=== PATIENT | male | born 1955 | race Caucasian/White ===

== ENCOUNTER 2019-12-21 13:46 | Emergency (ER) | payer BC, OTHER ==
[2019-12-21] MEDS ORDERED: traMADol 50 MG Tab PO ONE (14:17)
--- NOTE | 2019-12-21 14:22 | EDM.PDOC ---
ED HPI GENERAL MEDICAL PROBLEM - General Chief Complaint: Abdominal Pain Stated Complaint: ABDOMINAL PAIN Time Seen by Provider: 12/21/19 14:17 Source of Information: Reports: Patient History Limitations: Reports: No Limitations - History of Present Illness INITIAL COMMENTS - FREE TEXT/NARRATIVE: 64-year-old male presents to the ED with diffuse abdominal pain with mild nausea. He has had some loose diarrhea stools that are yellow in color and no blood. He has been diaphoretic. Of note the patient has been taking tramadol 100 mg 2-3 times daily for severe hip and low back pain for many months and ran out 3 days ago. He believes that he is going through withdrawal which I concur with. He does not drink alcohol. He has had abdominal surgery i.e. ventral hernia with mesh grafting in the past supraumbilically. Reports he is been trying to get off the tramadol and replace it with Aleve and Tylenol out of fears of getting addicted to the tramadol before he can get his left hip repaired. He was due to have repaired back in October but due to the COVID 19 illness his surgery has been canceled. Onset: Gradual Onset Date: 12/19/19 Duration: Day(s):, Getting Worse Location: Reports: Abdomen, Generalized (Associated weakness mild dizziness diaphoresis intermittent nausea diarrhea all signs and symptoms of withdrawal from opioid.) Quality: Reports: Other Severity: Moderate (As above) Improves with: Reports: None Worsens with: Reports: None Context: Reports: Other (Opioid withdrawal symptoms). Denies: Activity, Exercise, Lifting, Sick Contact, Trauma Associated Symptoms: Reports: Diaphoresis (Nausea without vomiting and hot flashes and sweats.), Nausea/Vomiting, Weakness, Other (Loose diarrheal stools) . Denies: No Other Symptoms, Confusion, Chest Pain, Cough, cough w sputum, Fever/Chills, Headaches, Malaise, Rash, Seizure, Shortness of Breath, Syncope Treatments DEBURRER STRIP: Reports: Acetaminophen, NSAIDS (The.) Abdomen Pain Score (Numeric/FACES): 4 - Related Data Allergies Allergy/AdvReac Type Severity Reaction Status Date / Time hydrocodone Allergy Severe Cannot Verified 12/21/19 14:01 Remember Home Meds: Home Meds traMADol HCl [Tramadol HCl] 100 mg PO TID PRN #90 tablet 12/21/19 [Rx] Past Medical History Cardiovascular History: Reports: Hypertension - Past Surgical History HEENT Surgical History: Reports: Oral Surgery, Tonsillectomy GI Surgical History: Reports: Hernia Repair/Other Musculoskeletal Surgical History: Reports: Arthroscopic Knee, Hip Replacement Social & Family History - Tobacco Use Smoking Status *Q: Never Smoker Second Hand Smoke Exposure: No - Caffeine Use Caffeine Use: Reports: None - Recreational Drug Use Recreational Drug Use: No - Living Situation & Occupation Living situation: Reports: Occupation: Employed ED ROS GENERAL - Review of Systems Review Of Systems: See Below Constitutional: Reports: Chills, Malaise, Weakness. Denies: Fever, Fatigue, Weight Loss HEENT: Reports: No Symptoms Respiratory: Reports: No Symptoms Cardiovascular: Reports: No Symptoms Endocrine: Reports: No Symptoms GI/Abdominal: Reports: Abdominal Pain (Remittent abdominal cramping pain), Diarrhea, Nausea. Denies: Decreased Appetite (Stools are on the looser side yellow in color with no blood), Hematemesis, Hematochezia, Vomiting ( Intermittent nausea vomiting) : Reports: Frequency (Severe urinary frequency.) Musculoskeletal: Reports: Back Pain (Neck low back pain), Other (Findings severe pain in his left hip. Right hip has been previously replaced) Skin: Reports: Diaphoresis Neurological: Reports: Dizziness, Difficulty Walking (Likely due to), Weakness. Denies: Confusion, Headache, Numbness, Paresthesia, Pre-Existing Deficit, Syncope, Tingling, Tremors, Trouble Speaking ( left hip pain), Change in Speech Psychiatric: Reports: No Symptoms Hematologic/Lymphatic: Reports: No Symptoms Immunologic: Reports: No Symptoms ED EXAM, GI/ABD - Physical Exam Exam: See Below Exam Limited By: No Limitations General Appearance: Alert, WD/WN, No Apparent Distress, Other (Temperature is 36.8 pulse 75 and sinus respiratory is 18 BP elevated 183 100. Patient is on antihypertensive medications. Pulse ox 98%) Eyes: Bilateral: Normal Appearance (No scleral icterus no blepharal pallor.) Throat/Mouth: Normal Inspection, Normal Lips, Normal Teeth, Normal Oropharynx Head: Atraumatic, Normocephalic Neck: Normal Inspection, Supple, Non-Tender, Full Range of Motion. No: Lymphadenopathy (L), Lymphadenopathy (R) Respiratory/Chest: No Respiratory Distress, Lungs Clear, Normal Breath Sounds, No Accessory Muscle Use, Chest Non-Tender Cardiovascular: Normal Peripheral Pulses, Regular Rate, Rhythm, No Edema, No Gallop, No Murmur, No Rub GI/Abdominal Exam: Soft, Non-Tender ( The supraumbilical midline incision and apparently had a ventral hernia repair with mesh graft placement.), No Organomegaly, No Abnormal Bruit, No Mass, Pelvis Stable, Abnormal Bowel Sounds, Other (All sounds are quite active in all 4 quadrants.) (Male) Exam: No Hernia Back Exam: Decreased Range of Motion, Paraspinal Tenderness (Along the lumbar spine bilaterally.) Extremities: Normal Inspection, Other (Limited internal and external rotation of the left hip.). No: Normal Range of Motion Neurological: Alert, Oriented, CN II-XII Intact, Normal Cognition. No: Normal Gait (Limping gait) Psychiatric: Normal Affect, Normal Mood Skin Exam: Warm, Dry, Intact, Normal Color, No Rash Course - Vital Signs Last Recorded V/S: Last Vital Signs Temp 36.8 C 12/21/19 14:03 Pulse 75 12/21/19 14:03 Resp 18 12/21/19 14:03 BP 183/100 H 12/21/19 14:03 Pulse Ox 98 12/21/19 14:03 - Orders/Labs/Meds Orders: Active Orders 24 hr Category Date Time Status Abdomen 1V Flat [CR] Stat Exams 12/21/19 14:17 Taken CBC WITH AUTO DIFF [HEME] Stat Lab 12/21/19 14:00 Results COMPREHENSIVE METABOLIC PN,CMP [CHEM] Stat Lab 12/21/19 14:00 Received CRP [C-REACTIVE PROTEIN] [CHEM] Stat Lab 12/21/19 14:00 Received LIPASE [CHEM] Stat Lab 12/21/19 14:00 Received MAGNESIUM [CHEM] Stat Lab 12/21/19 14:00 Received Labs: Laboratory Tests 12/21/19 Range/Units 14:00 WBC 10.26 H (4.23-9.07) K/mm3 RBC 5.90 (4.63-6.08) M/mm3 Hgb 17.5 (13.7-17.5) gm/dl Hct 51.1 H (40.1-51.0) % MCV 86.6 (79.0-92.2) fl MCH 29.7 (25.7-32.2) pg MCHC 34.2 (32.2-35.5) g/dl RDW Std Deviation 42.5 (35.1-43.9) fL Plt Count 251 D (163-337) K/mm3 MPV 10.3 (9.4-12.3) fl Neut % (Auto) 78.5 H (34.0-67.9) % Lymph % (Auto) 13.6 L (21.8-53.1) % Clay % (Auto) 6.5 (5.3-12.2) % Eos % (Auto) 0.9 (0.8-7.0) Baso % (Auto) 0.3 (0.1-1.2) % Neut # (Auto) 8.05 H (1.78-5.38) K/mm3 Lymph # (Auto) 1.40 (1.32-3.57) K/mm3 Clay # (Auto) 0.67 (0.30-0.82) K/mm3 Eos # (Auto) 0.09 (0.04-0.54) K/mm3 Baso # (Auto) 0.03 (0.01-0.08) K/mm3 Meds: Medications Discontinued Medications Generic Name Dose Route Start Last Admin Trade Name Freq PRN Reason Stop Dose Admin Tramadol HCl 100 mg 12/21/19 14:17 12/21/19 14:21 Ultram PO 12/21/19 14:18 100 mg ONETIME ONE Administration - Radiology Interpretation Free Text/Narrative:: 4-year-old male presents to the ED with signs and symptoms of opioid withdrawal from being on tramadol 100 mg 2-3 times daily for many months due to chronic pain in his lower back and left hip. He was a scheduled for left hip surgery 2 months ago but it was canceled because of the Cobin virus. He ran out of medication about 3 and half days ago. Since then he has developed symptoms such as nausea diaphoresis hot flushes abdominal cramping pain and loose yellow stools. Feels unwell. Been using Tylenol and Aleve for pain but is developing epigastric pain from NSAID use. Is also got significant hypertension. Is being aggravated by the NSAID. Plan tramadol 100 mg given by mouth. Routine labs and a KUB will be obtained to make sure nothing else is awry. - Re-Assessments/Exams Free Text/Narrative Re-Assessment/Exam: 12/21/19 14:46 White count is 10.26 with 78.5% neutrophils on the auto differential. Hemoglobin is elevated at 17.5 with hematocrit of 51.1 suggesting moderate hemoconcentration. CV is normal at 86.6. Odium 143 with a potassium of 3.7 chloride 104 with a bicarb 29. Anion gap is 13.7. BUN is 11 with a creatinine of 0.8. GFR remains greater than 60. Glucose is slightly elevated at 148. Calcium is 9.1 magnesium is 1.8. Liver function is normal. C -reactive protein is 0.5. Lipase is normal at 68. Pressure is running high with his diastolics almost all above 90 and as high as 112. Systolics are running anywhere anywhere from 1 68-1 3 to 4 weeks. He states he used to take lisinopril 5 mg daily but it appears that he probably has a significant hypertension problem and needs medication for this. The problem of course he is going through withdrawal and is having significant pain in his left hip. He will be discharged home on tramadol 100 mg twice daily with a 3 times daily dose as needed for bad days. 77. He is on a large amount of Aleve at this time and therefore I have advised him to discontinue this medication and have his blood pressure checked frequently over the next 3 to 4 weeks. Will be discharged home on tramadol Departure - Departure Time of Disposition: 14:56 Disposition: Home, Self-Care 01 Condition: Fair Clinical Impression: Acute opioid withdrawal - Discharge Information *PRESCRIPTION DRUG MONITORING PROGRAM REVIEWED*: Not Applicable *COPY OF PRESCRIPTION DRUG MONITORING REPORT IN PATIENT NUZHAT: Not Applicable Prescriptions: traMADol HCl [Tramadol HCl] 100 mg PO TID PRN #90 tablet PRN Reason: osteoarthritis Lt hip Referrals: PCP,None [Primary Care Provider] - Forms: ED Department Discharge Additional Instructions: Valuation in the emergency room today in regards to feeling fairly ill after missing out on tramadol tablets over the last 3 days. You are suffering mild opioid withdrawal symptoms with intermittent sweats nausea abdominal discomfort loose stools and a general sense of feeling ill. Lab test proved to be completely normal. X-ray of the abdomen was also completely normal. You are given a dose of tramadol for 100 mg in the ED to help start to relieve symptoms over the next 2 to 3 hours. Prescription written for tramadol 100 mg 3 times daily as needed or as needed for left hip pain until surgery can be performed. Follow-up with personal care physician as planned. Your blood pressure was notably elevated in the ED possibly for variety of reasons. First of all opioid withdrawal symptoms. Pain elevating blood pressure and Aleve that you are taking will elevate blood pressure. Suggest watching her blood pressure having it checked regularly over the next 3 to 4 weeks and if the top number remains greater than 140 and the bottom number remains greater than 85/90 you need to follow-up with a physician to have blood pressure medication introduced. Sepsis Event Note - Evaluation Sepsis Screening Result: No Definite Risk - Focused Exam Vital Signs: Vital Signs Temp Pulse Resp BP Pulse Ox 12/21/19 14:03 36.8 C 75 18 183/100 H 98 Date Exam was Performed: 12/21/19 Time Exam was Performed: 14:40 - My Orders Last 24 Hours: My Active Orders 12/21/19 14:00 CBC WITH AUTO DIFF [HEME] Stat COMPREHENSIVE METABOLIC PN,CMP [CHEM] Stat CRP [C-REACTIVE PROTEIN] [CHEM] Stat LIPASE [CHEM] Stat MAGNESIUM [CHEM] Stat 12/21/19 14:17 Abdomen 1V Flat [CR] Stat - Assessment/Plan Last 24 Hours: My Active Orders 12/21/19 14:00 CBC WITH AUTO DIFF [HEME] Stat COMPREHENSIVE METABOLIC PN,CMP [CHEM] Stat CRP [C-REACTIVE PROTEIN] [CHEM] Stat LIPASE [CHEM] Stat MAGNESIUM [CHEM] Stat 12/21/19 14:17 Abdomen 1V Flat [CR] Stat
--- NOTE | 2019-12-22 13:33 | CR ---
Abdomen: Supine view of the abdomen was obtained. Comparison: No prior abdominal x-ray, previous right upper quadrant abdominal ultrasound of 05/03/16 is available. Bowel gas pattern appears normal. Scoliosis and degenerative change is noted within the spine. Right hip prosthesis is noted. Severe joint space narrowing is noted within the left hip with large degenerative cyst within the superior acetabulum of the left hip is also noted. No abnormal calcifications are definitely seen. Impression: 1. Incidental findings as noted above. 2. Nothing acute is seen. Diagnostic code #2 This report was dictated in MDT
== END 2019-12-21 15:24 | disposition home or self-care (01) ==
LOC: JD.ED 13:46
DX: F11.23 Opioid dependence with withdrawal (principal); I10 Essential (primary) hypertension; Z88.8 Allergy status to other drugs, medicaments and biological substances
CPT/HCPCS: 36415; 74018; 80053; 83690; 83735; 85025; 86140; 99284; A9270; 99283

== ENCOUNTER 2020-08-31 08:05 | Day surgery (SDC) | payer OTHER ==
[~2020-08-31 08:05] MED LIST: Acetaminophen 325 MG Tab PO SCH; Lactated Ringers 1,000 ML IV SCH; Lidocaine 1% 4 ML ONE; Lidocaine 1%/Sod Bicarbonate in NS 8.4% 1 ML Syringe IDERM PRN; Midazolam 1 MG/ML 2 ML SDV ONE; Ondansetron 4 MG/2 ML SDV ONE; Pregabalin 25 MG Cap PO SCH; Propofol 200 MG/20 ML SDV ONE; Sodium Chloride 0.9% 10 ML Syringe FLUSH PRN; oxyCODONE ER 10 MG TAB.ER PO SCH
[2020-08-31] MEDS ORDERED: diphenhydrAMINE 50 MG/ML SDV IVPUSH PRN (08:28)
[2020-08-31] MEDS ORDERED: Ondansetron 4 MG/2 ML SDV IVPUSH PRN (08:28)
--- NOTE | 2020-08-31 08:34 | PCM.PREANE ---
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 ) - Physical Assessment NPO Status Date: 08/30/20 NPO Status Time: 07:00 Vital Signs: Last Vital Signs Temp 36.5 C 08/31/20 08:05 Pulse 78 08/31/20 08:05 Resp 14 08/31/20 08:05 BP 133/86 08/31/20 08:05 Pulse Ox 97 08/31/20 08:05 Height: 1.7 m Weight: 120.656 kg ASA Class: 3 Mental Status: Alert & Oriented x3 Airway Class: Mallampati = 2 Dentition: Reports: Missing Tooth/Teeth (missinge one tooth 2nd to back right ) Thyro-Mental Finger Breadths: 3 Mouth Opening Finger Breadths: 4 ROM/Head Extension: Full Lungs: Clear to Auscultation, Normal Respiratory Effort Cardiovascular: Regular Rate, Regular Rhythm - Lab Values: Laboratory Last Values MRSA (PCR) Negative 08/19/20 11:38 - Allergies Allergies/Adverse Reactions: Allergies Allergy/AdvReac Type Severity Reaction Status Date / Time No Known Allergies Allergy Verified 08/31/20 08:22 - Blood Blood Available: No - Anesthesia Plan Pre-Op Medication Ordered: None - Acknowledgements Anesthesia Type Planned: Spinal Pt an Appropriate Candidate for the Planned Anesthesia: Yes Alternatives and Risks of Anesthesia Discussed w Pt/Guardian: Yes Pt/Guardian Understands and Agrees with Anesthesia Plan: Yes PreAnesthesia Questionnaire Cardiovascular History: Reports: Hypertension - Past Surgical History HEENT Surgical History: Reports: Oral Surgery, Tonsillectomy GI Surgical History: Reports: Hernia Repair/Other Musculoskeletal Surgical History: Reports: Arthroscopic Knee, Hip Replacement - HOME MEDS Home Medications: Home Meds Apixaban [Eliquis] 2.5 mg PO BID #70 tablet 08/29/20 [Rx] Cyclobenzaprine [Flexeril] 10 mg PO BID PRN #20 tab 08/29/20 [Rx] oxyCODONE 5 - 10 mg PO Q4H PRN #40 tab 08/29/20 [Rx] - CURRENT (IN HOUSE) MEDS Current Meds: Current Medications Acetaminophen (Tylenol) 975 mg PO ONETIME LIN Stop: 08/31/20 13:00 Last Admin: 08/31/20 08:15 Dose: 975 mg Documented by: Morphine Sulfate 8 mg/Epinephrine HCl 0.3 mg/Cefuroxime Sodium 750 mg/Ketorolac Tromethamine 30 mg/Sodium Chloride 7.9 ml 0 mg .XX ASDIRECTED PRN PRN Reason: Pain Stop: 08/31/20 18:00 Lactated Ringer's (Ringers, Lactated) 1,000 mls @ 125 mls/hr IV ASDIRECTED LIN Stop: 08/31/20 23:00 Lidocaine/Sodium Bicarbonate (Buffered Lidocaine 1% In Ns 8.4%) 0.25 ml IDERM ONETIME PRN PRN Reason: Prior to IV Start Stop: 08/31/20 23:00 Oxycodone HCl (Oxycontin) 10 mg PO ONETIME LIN Stop: 08/31/20 13:00 Last Admin: 08/31/20 08:14 Dose: 10 mg Documented by: Pregabalin (Lyrica) 50 mg PO ONETIME LIN Stop: 08/31/20 13:00 Last Admin: 08/31/20 08:15 Dose: 50 mg Documented by: Sodium Chloride (Saline Flush) 10 ml FLUSH ASDIRECTED PRN PRN Reason: Keep Vein Open Stop: 08/31/20 18:00 Discontinued Medications Bupivacaine HCl (Sensorcaine-Mpf 0.25%) Confirm Administered Dose 30 ml .ROUTE .STK-MED ONE Stop: 08/31/20 08:15 Lactated Ringer's (Ringers, Lactated) 1,000 mls @ 125 mls/hr IV ASDIRECTED LIN Stop: 02/10/20 23:00 Lidocaine HCl (Xylocaine-Mpf 1%) Confirm Administered Dose 4 mls @ as directed .ROUTE .STK-MED ONE Stop: 08/31/20 07:41 Lidocaine/Sodium Bicarbonate (Buffered Lidocaine 1% In Ns 8.4%) 0.25 ml IDERM ONETIME PRN PRN Reason: Prior to IV Start Stop: 02/10/20 18:00 Midazolam HCl (Versed 1 Mg/Ml) Confirm Administered Dose 2 mg .ROUTE .STK-MED ONE Stop: 08/31/20 07:41 Ondansetron HCl (Zofran) Confirm Administered Dose 4 mg .ROUTE .STK-MED ONE Stop: 08/31/20 07:44 Propofol (Diprivan 20 Ml) Confirm Administered Dose 400 mg .ROUTE .STK-MED ONE Stop: 08/31/20 07:40 Sodium Chloride (Saline Flush) 10 ml FLUSH ASDIRECTED PRN PRN Reason: Keep Vein Open Stop: 02/10/20 18:00 Tranexamic Acid (Cyklokapron) Confirm Administered Dose 1,000 mg .ROUTE .STK-MED ONE Stop: 08/31/20 08:15 Vancomycin HCl (Vancomycin) Confirm Administered Dose 1 gm .ROUTE .STK-MED ONE Stop: 08/31/20 08:15
[2020-08-31] MEDS ORDERED: ceFAZolin 1 GM Vial ONE (10:18)
[2020-08-31] MEDS ORDERED: Sodium Chloride 0.9% 250 ML ONE (10:24)
[2020-08-31] MEDS ORDERED: Phenylephrine 1% 10 MG/ML SDV ONE (10:25)
[2020-08-31] MEDS ORDERED: ePHEDrine 50 MG/ML SDV ONE ×2 (10:27→11:37)
[2020-08-31] MEDS: Bupivacaine 0.25% 10 ML SDV ONE ×2 (11:06→11:12)
[2020-08-31] MEDS: Morphine 8 MG, EPINEPHrine 0.3 MG, Cefuroxime 750 MG, Ketorolac 30 MG, Sodium Chloride ... PRN ×10 (11:06→11:18)
[2020-08-31] MEDS: Vancomycin 1 GM SDV ONE ×2 (11:07→11:16)
[2020-08-31] MEDS ORDERED: Ketamine 500 mg/10 ML MDV ONE (11:13)
[2020-08-31] MEDS ORDERED: Propofol 200 MG/20 ML SDV ONE (11:26)
[2020-08-31] MEDS ORDERED: Lactated Ringers 1,000 ML ONE ×2 (11:31)
--- NOTE | 2020-08-31 12:15 | PCM.POSTAN ---
POST ANESTHESIA ASSESSMENT - MENTAL STATUS Mental Status: Alert - VITAL SIGNS Vital Signs: 1154 105/61 98 2 L 69 17 96.9 Last Vital Signs Temp 36.5 C 08/31/20 08:05 Pulse 78 08/31/20 08:05 Resp 14 08/31/20 08:05 BP 133/86 08/31/20 08:05 Pulse Ox 97 08/31/20 08:05 - RESPIRATORY Respiratory Status: Respiratory Rate WNL, Airway Patent, O2 Saturation Stable, Supplemental Oxygen - CARDIOVASCULAR CV Status: Pulse Rate WNL, Blood Pressure Stable - GASTROINTESTINAL GI Status: No Symptoms - PAIN Pain Score: 0 - POST OP HYDRATION Hydration Status: Adequate & Stable - OBSERVATIONS Free Text/Narrative:: pt awake and orientated in recovery room. when asked if he remembers events of case and he states yes he remembers having pressure under his right chest that was coming from the axillary roll. he remembers when it was removed and it relieved this pressure causing pain. he remembers sounds during case but not placing the 2nd IV . PT normaltensive
[2020-08-31] MEDS: fentaNYL 100 MCG/2 ML SDV IVPUSH PRN ×3 (12:26→13:36)
[2020-08-31] MEDS: HYDROmorphone 0.5 MG/0.5 ML Syringe IVPUSH ONE ×2 (13:04→13:17)
[2020-08-31] MEDS ORDERED: HYDROmorphone 0.5 MG/0.5 ML Syringe ONE (13:04)
--- NOTE | 2020-08-31 13:22 | CR ---
Pelvis and left hip: AP view of the pelvis was obtained as well as crosstable lateral view of the left hip. Comparison: Prior AP pelvis study of 01/21/2012. Recently placed left hip prosthesis is noted. Components are aligned. Soft tissue air is noted from the surgical procedure. Stable right hip prosthesis is noted. Above the right hip prosthesis there is a bony exostosis which is an interval change but likely incidental. Disc space narrowing is seen within the visualized spine. No acute bony abnormality is appreciated. Impression: 1. Recently placed left hip prosthesis. 2. Other findings as noted above. Diagnostic code #2
[2020-08-31] MEDS ORDERED: oxyCODONE 5 MG Tab PO PRN (13:29)
[2020-08-31] MEDS ORDERED: Ketorolac 30 MG/ML SDV IVPUSH ONE (13:37)
[2020-08-31] MEDS ORDERED: Cyclobenzaprine 10 MG Tab PO ONE (14:00)
--- NOTE | 2020-08-31 15:35 | PCM48HPAN ---
Post Anesthesia Note - EVALUATION WITHIN 48HRS OF ANESTHETIC Vital Signs in Normal Range: Yes Patient Participated in Evaluation: Yes Respiratory Function Stable: Yes Airway Patent: Yes Cardiovascular Function Stable: Yes Hydration Status Stable: Yes Pain Control Satisfactory: Yes Nausea and Vomiting Control Satisfactory: Yes Mental Status Recovered: Yes Vital Signs: Last Vital Signs Temp 99.1 F 08/31/20 13:25 Pulse 66 08/31/20 14:50 Resp 16 08/31/20 14:50 BP 99/58 L 08/31/20 14:50 Pulse Ox 96 08/31/20 14:55 - COMMENTS/OBSERVATIONS Free Text/Narrative:: up with PT. Feels less pain than last time. Denies nausea
--- NOTE | 2020-09-07 16:56 | PCM.OPNOTE ---
- General Post-Op/Procedure Note Date of Surgery/Procedure: 08/31/20 Operative Procedure(s): left total hip arthroplasty Pre Op Diagnosis: left hip osteoarthrosis Post-Op Diagnosis: Same Anesthesia Technique: Local, MAC, Spinal Primary Surgeon: Dhaval Miles Anesthesia Provider: Jackeline Saldana Whipped Topping Finisher: Katrina Tobin Whipped Topping Finisher: Petra Patterson EBL in mLs: 250 Complications: None Condition: Good Free Text/Narrative:: 60 cup 7 stem 28+0 MDM
--- NOTE | 2020-09-13 18:17 | OR ---
DATE OF OPERATION: 08/31/2020 SURGEON: Dhaval Miles MD OPERATION PERFORMED: Left total hip arthroplasty. PREOPERATIVE DIAGNOSIS: Left hip osteoarthrosis. POSTOPERATIVE DIAGNOSIS: Left hip osteoarthrosis. ANESTHESIA: Local MAC with spinal. ANESTHESIA PROVIDER: Jackeline Saldana. ASSISTANTS: Katrina Tobin PA-C and Petra Patterson LPN. ESTIMATED BLOOD LOSS: 250 mL. COMPLICATIONS: None. CONDITION: Stable. IMPLANTS: 1. Weston size 60 solid Tritanium II acetabular cup. 2. Weston size 7 Accolade II stem. 3. Weston size 28 +0 MDM components. DESCRIPTION OF PROCEDURE: The patient was identified in the preoperative holding area. Proper site was marked and identified by the surgeon. The patient taken back to the operating theater, where after adequate anesthesia, the patient was placed in the right lateral decubitus position. Axillary roll was placed. The patient's gluteal fold was parallel to the floor. Pegs were then placed and well padded. The patient's bony prominences were well padded. Left hip was then sterilely prepped and draped in the usual sterile fashion. OR time-out was performed. The patient received 2 g IV Ancef. Standard posterior incision was made centered over the greater trochanter. This was taken down to the IT band and gluteal fascia, which was incised along the incisional length. Charnley retractor was then placed. Short external rotators were identified, and takedown of the short external rotators as well as the capsule was done from the level of the piriformis down to the lesser trochanter. Hip was then dislocated. Neck cut was completed and found to be adequate. Attention was turned to the acetabulum. Anterior and posterior acetabular retractors were then placed. Circumferential removal of any remaining labrum was done at this time as well as the pulvinar. Starting with a 54 reamer, I was able to ream up to a 60, which was found to have good purchase and a good bony bleeding bed. A 60 mm Tritanium II acetabular solid cup was impacted into place and the MDM liner was impacted into place. Attention was turned to the femur. Box chisel was used out laterally. Starter awl was placed down the canal. Starting with the 0 broach, I was able to broach up to a size 7 which was found to be rotationally and vertically stable. Trial implants were then placed with +0 and was found to have adequate buddhist of leg lengths and was stable throughout range of motion. Bone hook was used to dislocate the trial implants. Trial implants were removed. The size 7 Accolade II stem was impacted into place and the 28+ 0 MDM components were constructed on the back table and impacted on to the stem. The hip was then relocated. A #5 Ethibond suture was used for closure of the short external rotators and capsule. 1 L of Irrisept irrigation was irrigated through the hip along with 1 L pulse lavage irrigation with Ancef. Topical tranexamic acid and vancomycin powder were applied. Periarticular injection was completed. A #2 barbed suture was used for closure of the IT band and gluteal fascia, 2-0 Vicryl was used subcutaneously, and Prineo was used for closure of the skin. The patient had a sterile soft dressing applied and sent to the PACU in stable condition. MMODAL /[id number]
== END 2020-08-31 16:18 | disposition home or self-care (01) ==
LOC: JD.SDS 08:05 → EDSTATUS 13:45 → JD.SDS 16:18
PROVIDERS: ATTEND Orthopaedic Surgery
DX: M16.12 Unilateral primary osteoarthritis, left hip (principal); I10 Essential (primary) hypertension; E66.9 Obesity, unspecified; F17.210 Nicotine dependence, cigarettes, uncomplicated; D68.51 Activated protein C resistance; Z68.41 Body mass index [BMI] 40.0-44.9, adult; Z79.899 Other long term (current) drug therapy; Z98.890 Other specified postprocedural states
CPT/HCPCS: 27130; 36415; 73501; 86850; 86900; 86901; 87641; 97116; 97161; A9270; C1776; J0171; J0690; J0697; J1170; J1885; J2001; J2250; J2270; J2370; J2405; J2704; J3010; J3370; J3490; J7050; J7120; 01214

== ENCOUNTER 2025-06-06 09:35 | Emergency (ER) | payer MEDICARE, BC ==
[2025-06-06 10:28] LABS: BASOPHILS ABSOLUTE AUTO 0.0 K/mm3 (0.0-0.2); BASOPHILS PERCENT AUTO 0.6 % (0.0-1.0); EOSINOPHILS ABSOLUTE AUTO 0.2 K/mm3 (0.0-0.4); EOSINOPHILS PERCENT AUTO 2.5 % (0.0-6.0); IMMATURE GRAN ABSOLUTE AUTO 0.02 K/mm3 (0.00-0.05); IMMATURE GRAN PERCENT AUTO 0.3 % (0.0-0.4); LYMPHOCYTES ABSOLUTE AUTO 1.3 K/mm3 (1.0-4.8); LYMPHOCYTES PERCENT AUTO 17.6 % (24.0-44.0); MEAN PLATELET VOLUME 9.7 fl (9.4-12.4); MONOCYTES ABSOLUTE AUTO 0.7 K/mm3 (0.0-0.8); MONOCYTES PERCENT AUTO 9.2 % (0.0-8.0); NEUTROPHILS ABSOLUTE AUTO 5.1 K/mm3 (1.8-7.7); NEUTROPHILS PERCENT AUTO 69.8 % (41.0-71.0); NRBC ABSOLUTE 0.00 (0.00-0.02); NRBC PERCENT 0.0 % (0.0-0.2); PLATELET COUNT,PLT 174 K/mm3 (150-400); RED BLOOD CELL COUNT 5.29 M/mm3 (4.52-5.90); WHITE BLOOD CELL COUNT,WBC 7.26 K/mm3 (3.9-11.3)
[2025-06-06] MEDS: Ondansetron 4 MG/2 ML SDV IVPUSH ONE (10:28)
[2025-06-06 10:53] LABS: A/G RATIO 1.4 (1-2); ALANINE AMINOTRANSFERASE,ALT 26.0 U/L (16-63); ASPARTATE AMNIOTRANSFERASE,AST 18.0 U/L (15-37); BILIRUBIN TOTAL 1.0 mg/dL (0.2-1.0); BLOOD UREA NITROGEN,BUN 14.0 mg/dL (7-18); CARBON DIOXIDE,CO2 26.0 mEq/L (21-32); CHLORIDE,CL 103.0 mEq/L (98-107); CREATININE 0.9 mg/dL (0.7-1.3); EST CRCL DRUG DOSING (CG) 72.42 mL/min; ESTIMATED GFR 92.0 mL/min (>60); GLUCOSE RANDOM 102.0 mg/dL (70-99); POTASSIUM,K 3.9 mEq/L (3.5-5.1); PROTEIN TOTAL,TP 6.6 g/dl (6.4-8.2); SODIUM,NA 139.0 mEq/L (136-145)
[2025-06-06 11:07] LABS: APPEARANCE,URINE CLEAR (Clear); GLUCOSE,URINE NEGATIVE (Negative); OCCULT BLOOD,URINE NEGATIVE (Negative)
[2025-06-06 11:13] LABS: SQUAMOUS EPITHELIAL CELLS,UR 0-5 /hpf (0-5)
[2025-06-06] MEDS: Sodium Chloride 0.9% 10 ML Syringe FLUSH PRN (11:14)
[2025-06-06] MEDS: Iopamidol 612 MG/ML 100 ML Bottle IVPUSH ONE (11:14)
[2025-06-06] MEDS: Sodium Chloride 0.9% 10 ML Syringe FLUSH ONE (12:49)
== END 2025-06-06 13:35 | disposition home or self-care (01) ==
LOC: JD.ED 09:35
DX: R10.21 Pelvic and perineal pain right side (principal); M25.551 Pain in right hip; I10 Essential (primary) hypertension; Z79.01 Long term (current) use of anticoagulants; Z79.899 Other long term (current) drug therapy; Z86.16 Personal history of COVID-19
CPT/HCPCS: 36415; 74177; 80053; 81001; 83690; 85025; 96374; 96375; 99284; J2405; Q9967; J1171